=== PATIENT | male | born 1975 | race Asian ===

== ENCOUNTER 2017-07-09 08:31 | Emergency (ER) | payer OTHER ==
[~2017-07-09] VITALS: Ht 160 cm; Wt 90.7 kg
[~2017-07-09 08:31] MED LIST: IBUP-1966 PO
[2017-07-09 08:36] VITALS: BP 145/89
--- NOTE | 2017-07-09 08:41 | NUR ---
Pt sent to lobby to wait for a bed
--- NOTE | 2017-07-09 08:58 | NUR ---
PT AMBULATED TO BED 2
--- NOTE | 2017-07-09 09:00 | NUR ---
41m bib friend with c/o 6/10 "achy" right flank pain radiating to right groin x 1 wk, progressively getting worse. Pt states nausea only when pain occurs. Pt denies any v/d or fevers. Pt also reports of urinary frequency. Pt reports of hx of kidney stones. Pt is aox4 with steady gait. Skin is warm/color appriopriate for ethnicity/dry. RR are even and unlabored. No acute distress. Awaiting er md dey. All needs met at this time. Will continue to monitor.
[2017-07-09] MEDS ORDERED: KETOROLAC 60 MG/2 ML VIAL IM ONE (09:05)
[2017-07-09 09:37] VITALS: BP 143/88
--- NOTE | 2017-07-09 09:37 | NUR ---
Patient discharged with v/s stable. Written and verbal after care instructions given and explained. Patient alert, oriented and verbalized understanding of instructions. Ambulatory with steady gait. All questions addressed prior to discharge. ID band removed. Patient advised to follow up with PMD. Rx of MOTRIN AND NORCO given. Patient educated on indication of medication including possible reaction and side effects. Opportunity to ask questions provided and answered.
== END 2017-07-09 09:37 | disposition home or self-care (01) ==
LOC: MED 08:31
DX: M54.5 Low back pain (principal)
CPT/HCPCS: 96372; 99283; J1885; 81002

== ENCOUNTER 2019-09-26 07:51 | Emergency (ER) | payer OTHER, SELFPAY ==
[~2019-09-26] VITALS: Ht 160 cm; Wt 87.5 kg
[2019-09-26 07:57] VITALS: BP 149/83
--- NOTE | 2019-09-26 08:08 | NUR ---
COVID SWAB VIA OP OBTAINED AND WALKED TO LAB
--- NOTE | 2019-09-26 08:09 | NUR ---
DR. CURTIS EVALUATING PT AT BEDSIDE
--- NOTE | 2019-09-26 08:15 | NUR ---
XRAY AT BEDSIDE
--- NOTE | 2019-09-26 09:02 | NUR ---
Patient discharged with v/s stable. Written and verbal after care instructions given and explained. Patient alert, oriented and verbalized understanding of instructions. Ambulatory with steady gait. All questions addressed prior to discharge. ID band removed. Patient advised to follow up with PMD. Rx of Motrin given. Patient educated on indication of medication including possible reaction and side effects. Opportunity to ask questions provided and answered. Excuse from work note provided to pt.
[2019-09-26 09:04] VITALS: BP 149/83
--- NOTE | 2019-09-27 19:04 | NUR ---
CALLED PT AT HOME #[phone] WITH COVID 19 POSITIVE RESULTS. PT STS "I'M DOING OK BUT MY BODY IS VERY SORE." RESULTS GIVEN TO HOUSE SUP AND INFECTION PREVENTION ELVIS
== END 2019-09-26 09:02 | disposition home or self-care (01) ==
LOC: EEVIPCON 07:51 → MED 07:51
DX: U07.1 COVID-19 (principal); R50.9 Fever, unspecified; M79.10 Myalgia, unspecified site; I10 Essential (primary) hypertension; Z79.899 Other long term (current) drug therapy
CPT/HCPCS: 71045; 99284; Q0092; U0003

== ENCOUNTER 2019-10-02 11:27 | Emergency (ER) | payer OTHER, SELFPAY ==
[~2019-10-02] VITALS: Ht 160 cm; Wt 83.5 kg
[2019-10-02 11:27] VITALS: BP 141/91
--- NOTE | 2019-10-02 11:30 | NUR ---
c/o cough, fever, body aches, fatigue x1 week; seen here Saturday and was tested for COVID; pt reports he is confirmed positive . Pt aox 4 fibrile , pink palpebral conjunctiva , sce , flat soft nabs nontender abdomen. hx HTN, kidney stones last took Motrin 800mg at 0900
--- NOTE | 2019-10-02 11:30 | NUR ---
AMBULATED TO BED 9
--- NOTE | 2019-10-02 11:38 | NUR ---
X-Ray at bedside.
[2019-10-02] MEDS ORDERED: ACETAMINOPHEN EXTRA STRENGTH 500 MG TAB PO ONE (11:40)
--- NOTE | 2019-10-02 11:47 | NUR ---
dr jung at bedside evaluating pt.
[2019-10-02] MEDS ORDERED: NACL 0.9% 1,000 ML IV ONE (11:55)
[2019-10-02] MEDS ORDERED: KETOROLAC 30 MG/ML VIAL IVP ONE (11:55)
--- NOTE | 2019-10-02 12:13 | NUR ---
PT COMFORTABLE IN BED ,SIDE RAILS UP X1 AND LOCK.
--- NOTE | 2019-10-02 12:20 | NUR ---
DR CURTIS AT BEDSIDE REEVALUATING PT.
[2019-10-02 12:57] VITALS: BP 130/79
--- NOTE | 2019-10-02 12:57 | NUR ---
IV removed, catheter intact and site benign. Applied folded 4x4 gauze and tape to stop bleeding.
--- NOTE | 2019-10-02 12:57 | NUR ---
Patient discharged with v/s stable. Written and verbal after care instructions given and explained. Patient alert, oriented and verbalized understanding of instructions. Ambulatory with steady gait. All questions addressed prior to discharge. ID band removed. Patient advised to follow up with PMD. Rx of Azithromycin 250mg and Motrin 800mg given. Patient educated on indication of medication including possible reaction and side effects. Opportunity to ask questions provided and answered.
== END 2019-10-02 12:57 | disposition home or self-care (01) ==
LOC: MED 11:27 → EEVIPCON 11:27 → MED 12:57
DX: U07.1 COVID-19 (principal); E86.0 Dehydration
CPT/HCPCS: 71045; 96361; 96374; 99283; J1885; J7030; Q0092

== ENCOUNTER 2021-05-10 07:53 | Outpatient (CLI) | payer OTHER ==
[2021-05-10 09:02] LABS: BASOPHILS # (AUTO) 0.1 K/uL (0.00-0.22); BASOPHILS % (AUTO) 1.4 % (0.0-2.0); EOSINOPHILS # (AUTO) 0.2 K/uL (0-0.4); EOSINOPHILS % (AUTO) 3.8 % (0.0-4.0); HEMATOCRIT 45.1 % (36-52); HEMOGLOBIN 15.2 g/dL (12.0-18.0); LYMPHOCYTES # (AUTO) 2.5 K/uL (2.0-11.5); LYMPHOCYTES % (AUTO) 39.1 % (20.5-51.1); MEAN CORPUSCULAR HEMOGLOBIN 30 pg (27-31); MEAN CORPUSCULAR HGB CONC 34 g/dL (33-37); MEAN CORPUSCULAR VOLUME 89.3 fL (80-94); MONOCYTES # (AUTO) 0.5 K/uL (0.8-1.0); MONOCYTES % (AUTO) 7.4 % (1.7-9.3); NEUTROPHILS # (AUTO) 3.1 K/uL (1.8-7.7); NEUTROPHILS % (AUTO) 48.3 % (42.2-75.2); PLATELET COUNT (AUTO) 220 K/uL (140-450); RED BLOOD CELL COUNT(AUTO) 5.06 MIL/uL (4.20-6.10); RED CELL DISTRIBUTION WIDTH 13.7 % (11.6-13.7); WHITE BLOOD COUNT (AUTO) 6.4 K/uL (4.8-10.8)
[2021-05-10 12:49] LABS: ALBUMIN 3.9 g/dL (3.4-5.0); ANION GAP 12.5 (8-16); CARBON DIOXIDE 28.3 mmol/L (21-32); CREATININE 0.8 mg/dL (0.6-1.3); POTASSIUM 3.8 mmol/L (3.5-5.1); THYROID STIMULATING HORMONE 0.87 uIU/mL (0.34-3.74); TOTAL BILIRUBIN 0.4 mg/dL (0.0-1.0)
== END 2021-05-10 20:10 | disposition home or self-care (01) ==
LOC: MLB 07:53
PROVIDERS: ATTEND Internal Medicine Geriatric Medicine
DX: Z00.00 Encounter for general adult medical examination without abnormal findings (principal)
CPT/HCPCS: 36415; 80053; 82306; 84443; 85025

== ENCOUNTER 2021-06-07 08:41 | Outpatient (CLI) | payer OTHER | END 2021-06-07 20:32 | disposition home or self-care (01) | LOC: MLB 08:41 | PROVIDERS: ATTEND Internal Medicine Geriatric Medicine | DX: R73.9 Hyperglycemia, unspecified (principal) | CPT/HCPCS: 36415; 83036 ==

== ENCOUNTER 2021-08-31 08:06 | Outpatient (CLI) | payer OTHER ==
[2021-08-31 09:11] LABS: ANION GAP 7.9 (8-16); CARBON DIOXIDE 29.9 mmol/L (21-32); CHOL/HDL RATIO 5.3 (1-4.5); CREATININE 0.8 mg/dL (0.6-1.3); POTASSIUM 3.8 mmol/L (3.5-5.1); TOTAL BILIRUBIN 0.6 mg/dL (0.0-1.0)
== END 2021-08-31 17:29 | disposition home or self-care (01) ==
LOC: MLB 08:06
PROVIDERS: ATTEND Internal Medicine Geriatric Medicine
DX: R73.9 Hyperglycemia, unspecified (principal); E55.9 Vitamin D deficiency, unspecified; E78.5 Hyperlipidemia, unspecified
CPT/HCPCS: 36415; 80053; 82306; 83036

== ENCOUNTER 2021-12-19 07:50 | Outpatient (CLI) | payer OTHER ==
[2021-12-19 08:46] LABS: BASOPHILS # (AUTO) 0.1 K/uL (0.00-0.22); BASOPHILS % (AUTO) 1.2 % (0.0-2.0); EOSINOPHILS # (AUTO) 0.2 K/uL (0-0.4); EOSINOPHILS % (AUTO) 3.2 % (0.0-4.0); HEMATOCRIT 44.3 % (36-52); HEMOGLOBIN 14.9 g/dL (12.0-18.0); LYMPHOCYTES # (AUTO) 2.2 K/uL (2.0-11.5); LYMPHOCYTES % (AUTO) 31.3 % (20.5-51.1); MEAN CORPUSCULAR HEMOGLOBIN 30 pg (27-31); MEAN CORPUSCULAR HGB CONC 34 g/dL (33-37); MEAN CORPUSCULAR VOLUME 88.6 fL (80-94); MONOCYTES # (AUTO) 0.5 K/uL (0.8-1.0); MONOCYTES % (AUTO) 7.1 % (1.7-9.3); NEUTROPHILS % (AUTO) 57.2 % (42.2-75.2); PLATELET COUNT (AUTO) 208 K/uL (140-450); RED CELL DISTRIBUTION WIDTH 13.9 % (11.6-13.7)
[2021-12-19 09:05] LABS: ANION GAP 11.2 (8-16); CARBON DIOXIDE 28.8 mmol/L (21-32); CREATININE 0.9 mg/dL (0.6-1.3); TOTAL BILIRUBIN 0.6 mg/dL (0.0-1.0)
== END 2021-12-19 20:04 | disposition home or self-care (01) ==
LOC: MLB 07:50
PROVIDERS: ATTEND Internal Medicine Geriatric Medicine
DX: E11.9 Type 2 diabetes mellitus without complications (principal); E78.5 Hyperlipidemia, unspecified; R80.9 Proteinuria, unspecified
CPT/HCPCS: 36415; 80053; 82043; 83036; 85025

== ENCOUNTER 2022-05-28 07:45 | Outpatient (CLI) | payer OTHER ==
[2022-05-28 08:17] LABS: APPEARANCE,URINE CLEAR (CLEAR); BILIRUBIN,URINE NEGATIVE (NEGATIVE); BLOOD, URINE NEGATIVE (NEGATIVE); COLOR,URINE YELLOW (YELLOW); LEUKOCYTE ESTERASE ,URINE NEGATIVE (NEGATIVE); NITRITE, URINE NEGATIVE (NEGATIVE); PH,URINE 6.5 (5.0-9.0); UGLUCOSE NEGATIVE (NEGATIVE)
[2022-05-28 08:56] LABS: ALBUMIN 4.4 g/dL (3.4-5.0); ANION GAP 14.5 (8-16); CARBON DIOXIDE 26.4 mmol/L (21-32); CHOL/HDL RATIO 3.2 (1-4.5); CREATININE 0.9 mg/dL (0.6-1.3); POTASSIUM 3.9 mmol/L (3.5-5.1); TOTAL BILIRUBIN 0.7 mg/dL (0.0-1.0)
[2022-05-28 08:59] LABS: BASOPHILS # (AUTO) 0.1 K/uL (0.00-0.22); BASOPHILS % (AUTO) 1.7 % (0.0-2.0); EOSINOPHILS # (AUTO) 0.3 K/uL (0-0.4); EOSINOPHILS % (AUTO) 4.4 % (0.0-4.0); HEMATOCRIT 44.5 % (36-52); HEMOGLOBIN 14.8 g/dL (12.0-18.0); LYMPHOCYTES # (AUTO) 2.4 K/uL (2.0-11.5); LYMPHOCYTES % (AUTO) 38.4 % (20.5-51.1); MEAN CORPUSCULAR HEMOGLOBIN 30 pg (27-31); MEAN CORPUSCULAR HGB CONC 33 g/dL (33-37); MEAN CORPUSCULAR VOLUME 89.2 fL (80-94); MONOCYTES # (AUTO) 0.4 K/uL (0.8-1.0); MONOCYTES % (AUTO) 6.6 % (1.7-9.3); NEUTROPHILS % (AUTO) 48.9 % (42.2-75.2); PLATELET COUNT (AUTO) 221 K/uL (140-450); RED BLOOD CELL COUNT(AUTO) 4.98 MIL/uL (4.20-6.10); RED CELL DISTRIBUTION WIDTH 13.6 % (11.6-13.7); WHITE BLOOD COUNT (AUTO) 6.2 K/uL (4.8-10.8)
== END 2022-05-28 20:17 | disposition home or self-care (01) ==
LOC: MLB 07:45
PROVIDERS: ATTEND Internal Medicine Geriatric Medicine
DX: E11.9 Type 2 diabetes mellitus without complications (principal); E55.9 Vitamin D deficiency, unspecified; R80.9 Proteinuria, unspecified
CPT/HCPCS: 36415; 80053; 81003; 82306; 83036; 85025

== ENCOUNTER 2022-08-28 07:58 | Outpatient (CLI) | payer OTHER ==
[2022-08-28 09:07] LABS: APPEARANCE,URINE CLEAR (CLEAR); BILIRUBIN,URINE NEGATIVE (NEGATIVE); BLOOD, URINE NEGATIVE (NEGATIVE); COLOR,URINE YELLOW (YELLOW); LEUKOCYTE ESTERASE ,URINE NEGATIVE (NEGATIVE); NITRITE, URINE NEGATIVE (NEGATIVE); UGLUCOSE NEGATIVE (NEGATIVE)
[2022-08-28 10:03] LABS: ANION GAP 13.9 (8-16); CREATININE 0.8 mg/dL (0.6-1.3); POTASSIUM 3.9 mmol/L (3.5-5.1)
== END 2022-08-28 20:08 | disposition home or self-care (01) ==
LOC: MLB 07:58
PROVIDERS: ATTEND Internal Medicine Geriatric Medicine
DX: E11.9 Type 2 diabetes mellitus without complications (principal); E55.9 Vitamin D deficiency, unspecified
CPT/HCPCS: 36415; 80048; 81003; 82043; 82306; 82565; 83036

== ENCOUNTER 2022-09-24 18:49 | Emergency (ER) | payer OTHER ==
[~2022-09-24] VITALS: Ht 160 cm; Wt 87.1 kg
[2022-09-24 18:57] VITALS: BP 181/117
--- NOTE | 2022-09-24 19:07 | NUR ---
PATIENT AMBULATORY TO ER BED 6
--- NOTE | 2022-09-24 19:12 | NUR ---
PT AMBULATE TO BED
[2022-09-24] MEDS ORDERED: NACL 0.9% 1,000 ML IV ONE (19:15)
[2022-09-24] MEDS ORDERED: MORPHINE SULFATE 4 MG/ML SYR IVP ONE (19:15)
[2022-09-24 19:39] LABS: BASOPHILS # (AUTO) 0.1 K/uL (0.00-0.22); BASOPHILS % (AUTO) 0.9 % (0.0-2.0); EOSINOPHILS # (AUTO) 0.1 K/uL (0-0.4); EOSINOPHILS % (AUTO) 1.3 % (0.0-4.0); HEMATOCRIT 45.3 % (36-52); HEMOGLOBIN 15.1 g/dL (12.0-18.0); LYMPHOCYTES # (AUTO) 1.9 K/uL (2.0-11.5); LYMPHOCYTES % (AUTO) 20.7 % (20.5-51.1); MEAN CORPUSCULAR HEMOGLOBIN 30 pg (27-31); MEAN CORPUSCULAR HGB CONC 33 g/dL (33-37); MEAN CORPUSCULAR VOLUME 90.3 fL (80-94); MONOCYTES # (AUTO) 0.4 K/uL (0.8-1.0); MONOCYTES % (AUTO) 4.4 % (1.7-9.3); NEUTROPHILS # (AUTO) 6.6 K/uL (1.8-7.7); NEUTROPHILS % (AUTO) 72.7 % (42.2-75.2); PLATELET COUNT (AUTO) 218 K/uL (140-450); RED BLOOD CELL COUNT(AUTO) 5.02 MIL/uL (4.20-6.10); WHITE BLOOD COUNT (AUTO) 9.1 K/uL (4.8-10.8)
[2022-09-24 19:54] LABS: ALBUMIN 4.5 g/dL (3.4-5.0); ANION GAP 14.5 (8-16); CARBON DIOXIDE 29.5 mmol/L (21-32); CREATININE 1.1 mg/dL (0.6-1.3); TOTAL BILIRUBIN 0.5 mg/dL (0.0-1.0)
--- NOTE | 2022-09-24 20:00 | NUR ---
Assumed care of the pt. IV access was inserted. IV fluids started. Blood in lab. Pt medicated for pain. Continued monitoring of status.
[2022-09-24] MEDS ORDERED: HYDROmorphone PFS 2 MG/ML SYR IVP ONE (20:10)
--- NOTE | 2022-09-24 20:22 | NUR ---
Pt's pain was unrelieved by Morphine. Medicated with Dilaudid as ordered.
--- NOTE | 2022-09-24 20:46 | NUR ---
Pt taken off unit to CT scan.
[2022-09-24 21:28] LABS: APPEARANCE,URINE CLEAR (CLEAR); BILIRUBIN,URINE NEGATIVE (NEGATIVE); BLOOD, URINE 3+ (NEGATIVE); COLOR,URINE YELLOW (YELLOW); LEUKOCYTE ESTERASE ,URINE NEGATIVE (NEGATIVE); NITRITE, URINE NEGATIVE (NEGATIVE); PH,URINE 6.5 (5.0-9.0); UGLUCOSE TRACE (NEGATIVE)
[2022-09-24 21:42] LABS: OTHER CRYSTALS,URINE SODIUM URATES 1+ /HPF (None Seen); RBC,URINE 20-50 /HPF (0-5); RED BLOOD CELL CASTS,URINE 0-10 /LPF (None Seen)
--- NOTE | 2022-09-24 22:23 | NUR ---
at informing pt of his findings. Will medicate pt as ordered.
[2022-09-24] MEDS ORDERED: KETOROLAC 15 MG/ML VIAL IVP ONE (22:25)
[2022-09-24] MEDS ORDERED: IBUP-2213 PO (22:26)
[2022-09-24] MEDS ORDERED: TAMS0.4C96 PO (22:26)
[2022-09-24 22:40] VITALS: BP 137/86
--- NOTE | 2022-09-24 22:42 | NUR ---
Patient discharged with v/s stable. Written and verbal after care instructions given and explained. Patient alert, oriented and verbalized understanding of instructions. Ambulatory with steady gait. All questions addressed prior to discharge. ID band removed. Patient advised to follow up with PMD. Rx of Flowmax and Motrin given. Patient educated on indication of medication including possible reaction and side effects. Opportunity to ask questions provided and answered. Instructed pt to return to the ER if unable to urinate or if condtion worsens.
== END 2022-09-24 22:40 | disposition home or self-care (01) ==
LOC: MED 18:49
DX: R10.32 Left lower quadrant pain (principal); I10 Essential (primary) hypertension; E11.9 Type 2 diabetes mellitus without complications; E78.00 Pure hypercholesterolemia, unspecified; Z79.4 Long term (current) use of insulin; Z79.899 Other long term (current) drug therapy
CPT/HCPCS: 36415; 74177; 80053; 81001; 83690; 85025; 87086; 96361; 96374; 96375; 99285; J1170; J1885; J2270; J7030; Q9967

== ENCOUNTER 2023-01-05 08:15 | Outpatient (CLI) | payer OTHER ==
[~2023-01-05 08:15] MED LIST changes: +IBUP-2213 PO; +TAMS0.4C96 PO
[2023-01-05 09:58] LABS: ALBUMIN 4.3 g/dL (3.4-5.0); ANION GAP 11.6 (8-16); CALCIUM 9.5 mg/dL (8.5-10.1); CREATININE 0.8 mg/dL (0.6-1.3); POTASSIUM 3.6 mmol/L (3.5-5.1); TOTAL BILIRUBIN 0.7 mg/dL (0.0-1.0); TOTAL PROTEIN, SERUM 7.8 g/dL (6.4-8.2)
[2023-01-06 14:02] LABS: HEMOGLOBIN A1C 6.7 % (4.8-5.6)
== END 2023-01-05 19:25 | disposition home or self-care (01) ==
LOC: MLB 08:15
PROVIDERS: ATTEND Internal Medicine Geriatric Medicine
DX: K82.4 Cholesterolosis of gallbladder (principal); K76.0 Fatty (change of) liver, not elsewhere classified; R74.01 Elevation of levels of liver transaminase levels
CPT/HCPCS: 36415; 76705; 80053; 82306; 83036

== ENCOUNTER 2023-06-22 08:12 | Outpatient (CLI) | payer OTHER ==
[2023-06-22 09:26] LABS: ALBUMIN 4.1 g/dL (3.4-5.0); CALCIUM 8.5 mg/dL (8.5-10.1); CARBON DIOXIDE 26.7 mmol/L (21-32); CHOL/HDL RATIO 3.3 (1-4.5); CREATININE 0.8 mg/dL (0.6-1.3); POTASSIUM 3.7 mmol/L (3.5-5.1); THYROID STIMULATING HORMONE 0.96 uIU/mL (0.34-3.74); TOTAL BILIRUBIN 0.6 mg/dL (0.0-1.0); TOTAL PROTEIN, SERUM 8.4 g/dL (6.4-8.2)
[2023-06-22 10:01] LABS: BASOPHILS # (AUTO) 0.1 K/uL (0.00-0.22); BASOPHILS % (AUTO) 0.9 % (0.0-2.0); EOSINOPHILS # (AUTO) 0.1 K/uL (0-0.4); EOSINOPHILS % (AUTO) 1.9 % (0.0-4.0); HEMATOCRIT 44.8 % (36-52); LYMPHOCYTES # (AUTO) 2.5 K/uL (2.0-11.5); LYMPHOCYTES % (AUTO) 32.7 % (20.5-51.1); MEAN CORPUSCULAR HEMOGLOBIN 30 pg (27-31); MEAN CORPUSCULAR HGB CONC 34 g/dL (33-37); MONOCYTES # (AUTO) 0.6 K/uL (0.8-1.0); MONOCYTES % (AUTO) 7.9 % (1.7-9.3); NEUTROPHILS # (AUTO) 4.3 K/uL (1.8-7.7); NEUTROPHILS % (AUTO) 56.6 % (42.2-75.2); PLATELET COUNT (AUTO) 214 K/uL (140-450); RED BLOOD CELL COUNT(AUTO) 4.98 MIL/uL (4.20-6.10); RED CELL DISTRIBUTION WIDTH 13.7 % (11.6-13.7); WHITE BLOOD COUNT (AUTO) 7.7 K/uL (4.8-10.8)
[2023-06-23 15:06] LABS: VITAMIN D, 25-HYDROXY 34.7 ng/mL (30.0-100.0)
[2023-06-24 08:07] LABS: T4 FREE (DIRECT) 1.43 ng/dL (0.82-1.77)
== END 2023-06-22 20:56 | disposition home or self-care (01) ==
LOC: MLB 08:12
DX: Z13.220 Encounter for screening for lipoid disorders (principal); Z13.9 Encounter for screening, unspecified; Z13.1 Encounter for screening for diabetes mellitus; Z13.29 Encounter for screening for other suspected endocrine disorder; E55.9 Vitamin D deficiency, unspecified
CPT/HCPCS: 36415; 80053; 82306; 83036; 84439; 84443; 85025